=== PATIENT | female | born 1965 | race Hispanic/Latino ===

== ENCOUNTER 2016-10-09 16:47 | Emergency (ER) | payer MEDICARE ==
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
[2016-10-09] MEDS ORDERED: TORADOL IM ONE (20:59)
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
--- NOTE | 2016-10-09 22:16 | XRay Report ---
FINAL REPORT PROCEDURE: XR FOOT 3 LT TECHNIQUE: Left foot, three views HISTORY: fall lt foot pain COMPARISON: No prior studies are available for comparison. FINDINGS: No acute fracture or joint dislocation is identified. There are mild osteoarthritic changes at the 1st metatarsophalangeal joint. Midfoot osteoarthritic changes are also noted. On the lateral view there is questionable diffuse mottled appearance of the distal fibula. IMPRESSION: No acute fracture is seen. On one view only there is questionable diffuse mottled appearance of the distal fibula shaft. This may be artifactual, however recommend dedicated views of the tibia and fibula to exclude osseous lesions.
--- NOTE | 2016-10-09 22:18 | XRay Report ---
FINAL REPORT PROCEDURE: XR SHOULDER 2 LT TECHNIQUE: Left shoulder, three views HISTORY: fall/lt shoulder pain COMPARISON: No prior studies are available for comparison. FINDINGS: There is narrowing of the glenohumeral joint space. Cortical irregularity of the inferior humeral head is favored to be related to an osteophyte. No acute fractures visualized. Acromioclavicular and glenohumeral joints appear intact, with no evidence of joint dislocation. IMPRESSION: Osteoarthritic changes. No acute fracture or dislocation is identified
[2016-10-09 23:52] VITALS: BP 95/67
== END 2016-10-09 23:51 | disposition home or self-care (01) ==
LOC: ED 16:47
DX: M25.512 Pain in left shoulder (principal); W19.XXXA Unspecified fall, initial encounter; Y93.89 Activity, other specified; Y99.9 Unspecified external cause status; Y92.89 Other specified places as the place of occurrence of the external cause
CPT/HCPCS: 73030; 73630; 82962; 99283; J1885

== ENCOUNTER 2016-10-14 22:20 | Emergency (ER) | payer MEDICARE ==
[2016-10-14 23:08] VITALS: BP 150/106
== END 2016-10-15 | disposition left against medical advice (07) ==
LOC: ED 22:20
DX: K59.00 Constipation, unspecified (principal); N89.8 Other specified noninflammatory disorders of vagina; Z53.21 Procedure and treatment not carried out due to patient leaving prior to being seen by health care provider